=== PATIENT | male | born 1960 | race American Indian/Alaskan Native ===

== ENCOUNTER 2016-06-16 09:07 | Emergency (ER) | payer SELFPAY ==
--- NOTE | 2016-06-16 10:21 | XRay Report ---
Chest 2 views: Compared to 06/26/15. History: Chest tightness and cough. Findings: Normal cardiomediastinal silhouette. Trachea is midline. No consolidation, pneumothorax or pleural effusion. Impression: No acute cardiopulmonary findings.
[2016-06-16] MEDS ORDERED: PROVENTIL IH ONE (11:50)
--- NOTE | 2016-06-16 11:52 | Emergency Department Report ---
- General Chief Complaint: Upper Respiratory Infection Stated Complaint: THIGHT CHEST/BRYAN Time Seen by Provider: 06/16/16 09:39 Source: patient Mode of arrival: Ambulatory Limitations: No Limitations - History of Present Illness Initial Comments: 55-year-old -[place] male comes in with complaint of tight chest since he was inspiration and wheezing with productive cough 1 week. Patient reports that he was still about 1 year ago was diagnosed as bronchitis. He reports that his cough shortness of breathing improved with albuterol inhaler. Patient admits to nasal congestion runny eyes and sneezing. He does admit that since he has moved here from [facility] [place] that his allergies have started to flareup. He reports that he's never had this issue before. Patient denies any fever but reports that he feels cold at this time. He denies any sore throat no past medical history currently takes no medication. MD Complaint: rhinorrhea, nasal congestion -: week(s) (1) Severity: mild Severity scale (0 -10): 8 Improves With: other (albuterol) Worsens With: deep breaths Associated Symptoms: cough, shortness of breath Treatments Prior to Arrival: none - Related Data Previous Rx's Medication Instructions Recorded Last Taken Type predniSONE [Deltasone] 50 mg PO QDAY #5 tab 06/26/15 Unknown Rx Albuterol Sulfate [Ventolin HFA] 2 puff IH Q4H PRN #1 hfa.aer.ad 06/16/16 Unknown Rx Azithromycin [Zithromax Z-ENOCH] 250 mg PO DAILY #6 tablet 06/16/16 Unknown Rx Fluticasone [Flonase] 1 spray NS BID #1 bottle 06/16/16 Unknown Rx predniSONE [Deltasone] 20 mg PO QDAY #5 tab 06/16/16 Unknown Rx Allergies Allergy/AdvReac Type Severity Reaction Status Date / Time No Known Allergies Allergy Verified 06/26/15 16:37 ED Review of Systems ROS: Stated complaint: THIGHT CHEST/BRYAN Other details as noted in HPI ED Past Medical Hx - Past Medical History Previous Medical History?: Yes Hx Congestive Heart Failure: No Hx Diabetes: No Hx Asthma: Yes (bronchitis) Hx COPD: No - Surgical History Past Surgical History?: No - Social History Smoking Status: Never Smoker Substance Use Type: None - Medications Home Medications: Home Medications Medication Instructions Recorded Confirmed Last Taken Type predniSONE [Deltasone] 50 mg PO QDAY #5 tab 06/26/15 Unknown Rx Albuterol Sulfate [Ventolin HFA] 2 puff IH Q4H PRN #1 hfa.aer.ad 06/16/16 Unknown Rx Azithromycin [Zithromax Z-ENOCH] 250 mg PO DAILY #6 tablet 06/16/16 Unknown Rx Fluticasone [Flonase] 1 spray NS BID #1 bottle 06/16/16 Unknown Rx predniSONE [Deltasone] 20 mg PO QDAY #5 tab 06/16/16 Unknown Rx ED Physical Exam - General Limitations: No Limitations General appearance: alert, in no apparent distress - Head Head exam: Present: atraumatic, normocephalic - ENT ENT exam: Present: normal exam, mucous membranes moist - Neck Neck exam: Present: normal inspection - Respiratory Respiratory exam: Present: decreased breath sounds - Cardiovascular Cardiovascular Exam: Present: regular rate, normal rhythm, normal heart sounds - Neurological Exam Neurological exam: Present: alert, oriented X3, normal gait - Psychiatric Psychiatric exam: Present: normal affect, normal mood ED Course Vital Signs 06/16/16 06/16/16 06/16/16 09:23 12:13 12:15 Temperature 98.9 F Pulse Rate 82 Pulse Rate [ 74 67 Anterior] Pulse Rate [ 74 68 Posterior] Respiratory 16 Rate Respiratory 18 18 Rate [Anterior] Respiratory 18 18 Rate [Posterior ] Blood Pressure 129/82 Critical care attestation.: If time is entered above; I have spent that time in minutes in the direct care of this critically ill patient, excluding procedure time. ED Disposition Clinical Impression: Acute bronchitis Qualifiers: Bronchitis organism: unspecified organism Qualified Code(s): J20.9 - Acute bronchitis, unspecified Disposition: DISCHARGED TO HOME OR SELFCARE Is pt being admited?: No Does the pt Need Aspirin: No Condition: Stable Instructions: Acute Bronchitis (ED) Additional Instructions: Take medications as prescribed. Follow-up with a primary care provider in 3-5 days if symptoms does not improve or gets worse. He may return to the emergency room if signs or symptoms get worse as well. Prescriptions: Albuterol Sulfate [Ventolin HFA] 2 puff IH Q4H PRN #1 hfa.aer.ad PRN Reason: Shortness Of Breath Azithromycin [Zithromax Z-ENOCH] 250 mg PO DAILY #6 tablet Fluticasone [Flonase] 1 spray NS BID #1 bottle predniSONE [Deltasone] 20 mg PO QDAY #5 tab Referrals: PRIMARY CARE, [Primary Care Provider] - 3-5 Days ALLYN MAGDALENO MD [Staff Physician] - 3-5 Days Forms: Work/School Release Form(ED)
[2016-06-16 13:19] VITALS: BP 121/78
== END 2016-06-16 13:18 | disposition home or self-care (01) ==
LOC: ED 09:07
DX: J20.9 Acute bronchitis, unspecified (principal); J45.909 Unspecified asthma, uncomplicated
CPT/HCPCS: 71020; 93005; 93010; 94640

== ENCOUNTER 2017-05-22 13:27 | Emergency (ER) | payer SELFPAY | END 2017-05-22 14:55 | disposition left against medical advice (07) | LOC: ED 13:27 | DX: R06.00 Dyspnea, unspecified (principal); Z53.21 Procedure and treatment not carried out due to patient leaving prior to being seen by health care provider ==